=== PATIENT | female | born 1990 ===

== ENCOUNTER 2018-07-01 14:22 | Outpatient (CLI) | payer OTHER ==
[2018-07-01] MEDS ORDERED: PRENATAL CAPLE1 EAC1 PO (16:05)
[2018-07-01] MEDS ORDERED: FOLIC ACID20 MG (16:06)
== END 2018-07-01 16:10 | disposition home or self-care (01) ==
LOC: OBS/DEL 14:22
DX: O26.893 Other specified pregnancy related conditions, third trimester (principal); K21.9 Gastro-esophageal reflux disease without esophagitis; Z34.83 Encounter for supervision of other normal pregnancy, third trimester

== ENCOUNTER 2018-07-06 09:30 | Inpatient (IN) | payer OTHER ==
[~2018-07-06] VITALS: Ht 154.9 cm; Wt 78.0 kg
[~2018-07-06 09:30] MED LIST: FOLIC ACID20 MG; PRENATAL CAPLE1 EAC1 PO
== END 2018-07-27 10:46 | disposition home or self-care (01) | DRG 807 ==
LOC: OB/GYN 07-25 07:52 → LDR 07-25 07:52 → OB/GYN 07-25 13:03
PROVIDERS: ADMIT Obstetrics & Gynecology
PROC: 10E0XZZ Delivery of Products of Conception, External Approach (ICD-10-PCS; principal; 2018-07-25)
PROC: 0HQ9XZZ Repair Perineum Skin, External Approach (ICD-10-PCS; 2018-07-25)
PROC: 4A0HXFZ Measurement of Products of Conception, Cardiac Rhythm, External Approach (ICD-10-PCS; 2018-07-25)
DX: O70.0 First degree perineal laceration during delivery (principal); Z37.0 Single live birth; O69.81X0 Labor and delivery complicated by cord around neck, without compression, not applicable or unspecified; Z3A.39 39 weeks gestation of pregnancy